=== PATIENT | male | born 2000 | race Caucasian/White ===

== ENCOUNTER 2022-06-25 14:59 | Emergency (ER) | payer SELFPAY ==
[~2022-06-25] VITALS: Ht 167.6 cm; Wt 61.2 kg
[~2022-06-25 14:59] MED LIST: ACET325UDC; ACET500 PO; ALBUIS IH; AMOCLA250S PO; AMOCLA500 PO; AMOCLA875 PO; AMOX250CH PO; AMOX50SU PO; ANTOXYBENA OT; AZIT100SU PO; AZIT200SU PO; CEPH250SUA PO; CODACEE120 PO; DIPH12.5EL PO; ERYT.5TO OS; MULT50L; MULTCH; MULTIVITAMIN PO; NUTROPIN; PROM12.5S PR; PROM6.25SY PO; RXAMOCLASU PO; RXANTBENOT AU; RXNEOPOLHC AS; SODBIC650; SODBIC650 PO; STOMUL; SULTRISS; Triamcinolone A15 G3 TOP; [UNRECOGNIZED DRUG - OTHER] PO; [UNRECOGNIZED DRUG - REMARK]
== END 2022-06-25 15:23 | disposition home or self-care (01) ==
LOC: ER 14:59
DX: L23.7 Allergic contact dermatitis due to plants, except food (principal)
CPT/HCPCS: J3301